=== PATIENT | male | born 1985 | race Caucasian/White ===

== ENCOUNTER 2018-06-20 02:51 | Emergency (ER) | payer BC, SELFPAY ==
--- NOTE | 2018-06-20 02:54 | W.ED.GENAD ---
Discharge Plan Disposition Patient Disposition: HOME Condition: Stable Discharge Details Chief Complaint: FlankPain Clinical Impression: Calculus of right ureter Primary Care Provider: None,None ED Provider: Jeffry Dorsey Home Meds and New Rx's Prescriptions: New oxycodone 5 mg tablet 5 mg PO Q6H PRN (Reason: pain) Qty: 12 RF: 0 ondansetron 4 mg tablet,disintegrating 4 mg PO TID PRN (Reason: nausea and vomiting) 5 Days Qty: 30 RF: 0 tamsulosin [Flomax] 0.4 mg capsule 0.4 mg PO DAILY Qty: 14 RF: 0 Discharge Instructions Instructions: Oxycodone, Rapid Release (By mouth), Kidney Stones (ED) Additional Instructions: you should be contacted with an appointment for urology you can take 1000mg tylenol and 600mg ibuprofen every 6 hours for pain as needed. If you need additional pain relief take 1 oxycodone, do not drink alcohol or drive if you take this medicine take the ondansetron (zofran) as needed for nausea/vomit every 8 hours take the flomax (tamsulosin) daily for 14 days or until you pass the stone If you have fevers, persistent vomit or severe uncontrolled pain return to the emergency department for reevaluation Medical Decision Making 33 yo male who denies chornic medical problems, prior surgeries, denies smoking, frequent alcohol use or drug use, who comes in with acute onset right sided abodminal/flank pain localizes to the rlq and oblique area. Denies having pain like this in the past. [place] well during the day yesterday, no fevers, no vomit. on exam he appears in discomfort and does have rlq pain with guarding, no rebound. Will obtain lfts, lipase and also CT to eval for appendicitis vs kidney stone pt remains stable, having less pain. My read of CT shows distal right ureter stone with hydro. Awaiting labs and vrad report labs unremarkable, vrad agrees distal right ureter stone. Will have him f/u with urology as an outpatient myriam and return precautions given Differential Diagnosis appendicitis, kidney stone, pancreatitis Imaging Data Radiologic Study: Attestation: I personally reviewed and interpreted this imaging study as follows: Imaging: CT Scan My impression: distal right ureter stone Radiologist's impression: IMPRESSION: 3 mm calculus in the right distal ureter with mild right hydroureteronephrosis. Lab Data Lab results reviewed: Yes I reviewed the patient's lab results. HPI General Mode of arrival: ambulatory. Date/Time Provider Initiated Documentation: 06/20/18 02:53. Limitations to Documentation: no limitations. Information obtained by: patient. History of Present Illness 33 year old M presents to the emergency department with the chief complaint of abdominal/flank pain, described as severe, Quality is described as stabbing, and is localized to the abdomen. Patient reports no radiation. Patient started experiencing this hour(s) (3) and it has been constant. No relieving factors improve symptom(s), No exacerbating factors reported . Patient notes no other symptoms.. Patient did receive the following treatments prior to arrival, none Related Data Home Medications Medication Instructions Recorded Confirmed ondansetron 4 mg PO TID PRN 5 Days #30 tab 06/20/18 oxycodone 5 mg PO Q6H PRN #12 tab 06/20/18 tamsulosin [Flomax] 0.4 mg PO DAILY #14 cap 06/20/18 Previous Rx's Medication Instructions Recorded ondansetron 4 mg PO TID PRN 5 Days #30 tab 06/20/18 oxycodone 5 mg PO Q6H PRN #12 tab 06/20/18 tamsulosin [Flomax] 0.4 mg PO DAILY #14 cap 06/20/18 Allergies Allergy/AdvReac Type Severity Reaction Status Date / Time No Known Allergies Allergy Unverified 06/20/18 03:09 Review of Systems Review of Systems All systems reviewed & are unremarkable except as noted in HPI and below Constitutional Denies chills and Denies fever(s) Cardiovascular Denies chest pain and Denies dyspnea Respiratory Denies cough and Denies dyspnea Gastrointestinal Denies vomiting Genitourinary Denies dysuria PFSH Social History Smoking/Tobacco Use Status: Never Substance use type: does not use Do you feel safe at home: Yes Do you feel safe in your relationship?: Yes Exam Const General: no acute distress Orientation: alert HENMT Head: normal to inspection Ears: external ears normal General nose exam: external nose normal Mouth: moist mucous membranes Eyes General: appearance normal, both eyes and all related structures Neck Neck: normal visual inspection Resp Effort & Inspection: normal respiratory effort and able to speak in complete sentences Cardio Rate: regular rate GI Inspection: no abdominal wall ecchymosis Palpation: soft Skin General skin exam: no rashes or lesions noted Neuro General: alert and oriented x3 Extrem General: normal to inspection Psych Mental Status: mental status grossly normal
--- NOTE | 2018-06-20 03:00 | DI.CT_ITS ---
SYMPTOM/DIAGNOSIS: RIGHT LOWER ABD PAIN ABDOMINAL AND PELVIC CT 06/20/18 CT examination of the abdomen and pelvis was performed with a bolus infusion of 100 cc Omnipaque 350. Images obtained through the lung bases are unremarkable. Liver, spleen, pancreas, gallbladder and bile ducts are unremarkable. Abdominal aorta is of normal diameter and no major vascular abnormalities seen. No abdominal or pelvic adenopathy seen. No significant abdominal wall hernia. Appendix appears normal. No evidence of diverticulitis. Left kidney and adrenal are unremarkable in appearance. Right adrenal appears normal. Right kidney is mildly hydronephrotic and there is hydroureter to the level of the ureterovesical junction where there is an obstruction approximately 3 mm in diameter stone. CONCLUSION: 3 mm right obstructing distal ureteral stone.
[2018-06-20 03:03] VITALS: BP 152/82; PULSE 56; RESP 16; TEMP 37; O2SAT 98
--- NOTE | 2018-06-20 03:05 | ED.GENADUL_ITS ---
Discharge Plan Disposition Patient Disposition: HOME Condition: Stable Discharge Details Chief Complaint: FlankPain Clinical Impression: Calculus of right ureter Primary Care Provider: None,None ED Provider: Jeffry Dorsey Home Meds and New Rx's Prescriptions: New oxycodone 5 mg tablet 5 mg PO Q6H PRN (Reason: pain) Qty: 12 RF: 0 ondansetron 4 mg tablet,disintegrating 4 mg PO TID PRN (Reason: nausea and vomiting) 5 Days Qty: 30 RF: 0 tamsulosin [Flomax] 0.4 mg capsule 0.4 mg PO DAILY Qty: 14 RF: 0 Discharge Instructions Instructions: Oxycodone, Rapid Release (By mouth), Kidney Stones (ED) Additional Instructions: you should be contacted with an appointment for urology you can take 1000mg tylenol and 600mg ibuprofen every 6 hours for pain as needed. If you need additional pain relief take 1 oxycodone, do not drink alcohol or drive if you take this medicine take the ondansetron (zofran) as needed for nausea/vomit every 8 hours take the flomax (tamsulosin) daily for 14 days or until you pass the stone If you have fevers, persistent vomit or severe uncontrolled pain return to the emergency department for reevaluation Medical Decision Making 33 yo male who denies chornic medical problems, prior surgeries, denies smoking, frequent alcohol use or drug use, who comes in with acute onset right sided abodminal/flank pain localizes to the rlq and oblique area. Denies having pain like this in the past. [place] well during the day yesterday, no fevers, no vomit. on exam he appears in discomfort and does have rlq pain with guarding, no rebound. Will obtain lfts, lipase and also CT to eval for appendicitis vs kidney stone pt remains stable, having less pain. My read of CT shows distal right ureter stone with hydro. Awaiting labs and vrad report labs unremarkable, vrad agrees distal right ureter stone. Will have him f/u with urology as an outpatient myriam and return precautions given Differential Diagnosis appendicitis, kidney stone, pancreatitis Imaging Data Radiologic Study: Attestation: I personally reviewed and interpreted this imaging study as follows: Imaging: CT Scan My impression: distal right ureter stone Radiologist's impression: IMPRESSION: 3 mm calculus in the right distal ureter with mild right hydroureteronephrosis. Lab Data Lab results reviewed: Yes I reviewed the patient's lab results. HPI General Mode of arrival: ambulatory . Date/Time Provider Initiated Documentation: 06/20/18 02:53 . Limitations to Documentation: no limitations . Information obtained by: patient . History of Present Illness 33 year old M presents to the emergency department with the chief complaint of abdominal/flank pain, described as severe, Quality is described as stabbing, and is localized to the abdomen. Patient reports no radiation. Patient started experiencing this hour(s) (3) and it has been constant. No relieving factors improve symptom(s), No exacerbating factors reported . Patient notes no other symptoms.. Patient did receive the following treatments prior to arrival, none Related Data Home Medications Medication Instructions Recorded Confirmed ondansetron 4 mg PO TID PRN 5 Days #30 tab 06/20/18 oxycodone 5 mg PO Q6H PRN #12 tab 06/20/18 tamsulosin [Flomax] 0.4 mg PO DAILY #14 cap 06/20/18 Previous Rx's Medication Instructions Recorded ondansetron 4 mg PO TID PRN 5 Days #30 tab 06/20/18 oxycodone 5 mg PO Q6H PRN #12 tab 06/20/18 tamsulosin [Flomax] 0.4 mg PO DAILY #14 cap 06/20/18 Allergies Allergy/AdvReac Type Severity Reaction Status Date / Time No Known Allergies Allergy Unverified 06/20/18 03:09 Review of Systems Review of Systems All systems reviewed & are unremarkable except as noted in HPI and below Constitutional Denies chills and Denies fever(s) Cardiovascular Denies chest pain and Denies dyspnea Respiratory Denies cough and Denies dyspnea Gastrointestinal Denies vomiting Genitourinary Denies dysuria PFSH Social History Smoking/Tobacco Use Status: Never Substance use type: does not use Do you feel safe at home: Yes Do you feel safe in your relationship?: Yes Exam Const General: no acute distress Orientation: alert HENMT Head: normal to inspection Ears: external ears normal General nose exam: external nose normal Mouth: moist mucous membranes Eyes General: appearance normal, both eyes and all related structures Neck Neck: normal visual inspection Resp Effort & Inspection: normal respiratory effort and able to speak in complete sentences Cardio Rate: regular rate GI Inspection: no abdominal wall ecchymosis Palpation: soft Skin General skin exam: no rashes or lesions noted Neuro General: alert and oriented x3 Extrem General: normal to inspection Psych Mental Status: mental status grossly normal
[2018-06-20 03:07] LABS: Bilirubin Negative (Negative); Blood Trace-lysed (Negative); Clarity Clear; Glucose Negative (Negative); Ketones 40 mg/dL (Negative); Leukocyte Esterase Negative (Negative); Nitrite Negative (Negative); Specific Gravity >= 1.030 (1.005-1.025); Urobilinogen 0.2 EU/dL (Up TO 0.2)
[2018-06-20] MEDS: Normal Saline 1,000 ML 1000 ML IV (03:16)
[2018-06-20] MEDS: Ondansetron 4 MG/2 ML VIAL IVP (03:16)
[2018-06-20] MEDS: Ketorolac 15 MG/ML VIAL IVP ×2 (03:16→03:40)
[2018-06-20 03:29] LABS: Abs Immature Grans 0.02 k/cumm (0.0-0.09); Absolute Basophil Count 0.03 k/cumm (0.0-0.2); Absolute Eosinophil Count 0.16 k/cumm (0.0-0.7); Absolute Lymphocyte Count 1.53 k/cumm (1.2-3.4); Absolute Neutrophil Count 7.69 k/cumm (1.2-6.7); Basophils % 0.3; Eosinophils % 1.6; HCT 45.8 % (40.0-50.0); HGB 15.4 g/dL (13.5-17.5); Immature Grans % 0.2; Lymphocytes % 15.4; Mean Corp. HGB Concentration 33.6 g/dL (32.0-36.0); Mean Corpuscular Hemoglobin 26.6 pg (27.0-33.0); Mean Corpuscular Volume 79.2 fL (80-95); Mean Platelet Volume 10.7 fL (8.0-11.0); Neutrophils % 77.5; Platelet Count 224 x1000/uL (130-400); RBC 5.78 m/cumm (4.50-6.00); RBC Distribution Width 13.6 % (11.8-14.1); White Blood Cell Count 9.93 k/cumm (4.4-10.8)
[2018-06-20] MEDS: Omnipaque 350 MG/ML 100 ML BTL IJ (03:29)
[2018-06-20 03:39] LABS: Epithelial Cells Negative HPF (Negative); WBC Negative HPF (0-5)
[2018-06-20 03:40] LABS: Bacteria Negative HPF (Negative); Casts 0-2 Hyaline LPF (Negative); Crystals Negative HPF (Negative); Mucus Heavy (Negative)
[2018-06-20 03:41] LABS: ALT 22 U/L (12-78); AST 20 U/L (15-37); Albumin 4.4 g/dL (3.4-5.0); Alkaline Phosphatase 44 U/L (46-116); Anion Gap 11.7 mmol/L (3-11); BUN 23 mg/dL (7-18); Bilirubin, Total 1.4 mg/dL (0.2-1.0); CO2 28.3 mmol/L (21.0-32.0); CREATININE 1.38 mg/dL (0.70-1.30); Chloride 101 mmol/L (98-107); Estimated GFR 59.71 (mL/min/1.73m2); Glucose 127 mg/dL (70-100); Lipase 120 U/L (73-393); Magnesium 1.9 mg/dL (1.8-2.4); Potassium 3.7 mmol/L (3.5-5.1); Sodium 141 mmol/L (136-145); Total Protein 7.9 g/dL (6.4-8.2)
[2018-06-20 03:41] LABS: C & S Indicated? No
[2018-06-20 03:48] VITALS: BP 140/72; PULSE 56; RESP 16; TEMP 37; O2SAT 98
[2018-06-20] MEDS: oxyCODONE 5 MG TAB 10 MG PO (03:48)
--- NOTE | 2018-06-20 03:50 | DI.VRAD_ITS ---
EXAM: CT Abdomen and Pelvis With Contrast EXAM DATE/TIME: 06/20/2018 3:01 AM CLINICAL HISTORY: 33 years old, male; Pain; Abdominal pain; Localized; Right lower quadrant (rlq); Patient HX: Right lower abdominal pain; Additional info: Per PT: Ongoing since midnight TECHNIQUE: Imaging protocol: Axial computed tomography images of the abdomen and pelvis with intravenous contrast. Coronal and sagittal reformatted images were created and reviewed. COMPARISON: No relevant prior studies available. FINDINGS: Lower thorax: No acute findings. ABDOMEN: Liver: Normal. No mass. Gallbladder and bile ducts: Normal. No calcified stones. No ductal dilation. Pancreas: Normal. No ductal dilation. Spleen: Normal. No splenomegaly. Adrenals: Normal. No mass. Kidneys and ureters: 3 mm calculus in the right distal ureter with mild right hydroureteronephrosis. Stomach and bowel: Normal. No obstruction. No mucosal thickening. Appendix: No evidence of appendicitis. PELVIS: Bladder: Unremarkable as visualized. Reproductive: Unremarkable as visualized. ABDOMEN and PELVIS: Intraperitoneal space: Normal. No free air. No significant fluid collection. Bones/joints: No acute fracture. No dislocation. Soft tissues: Unremarkable. Vasculature: Normal. No abdominal aortic aneurysm. Lymph nodes: Normal. No enlarged lymph nodes. IMPRESSION: 3 mm calculus in the right distal ureter with mild right hydroureteronephrosis. Dictated and Authenticated by: Jeffry Chapin MD. Ordering:ROQUE Teran MD
[2018-06-20] MEDS: Ondansetron O.D.T. 4 MG TABEF PO (03:51)
--- NOTE | 2018-06-21 10:00 | NUR.NOTE ---
Nursing Note: Faxed referral [facility], Dr. Mayes for follow up. [place].
== END 2018-06-20 04:04 | disposition home or self-care (01) ==
PROVIDERS: Emergency Provider Emergency Medicine
DX: N13.30 Unspecified hydronephrosis (principal)
CPT/HCPCS: 36415; 80053; 83690; 96361; 96374; 96375; 96376; 74177; 81003; 81015; 83735; 85025; 99284; J1885; J2405; J3490

== ENCOUNTER 2021-10-03 12:13 | Outpatient (REF) | payer BC, SELFPAY ==
[2021-10-04 13:45] LABS: COVID-19 RT-PCR UVMMC Result Negative (Negative)
== END 2021-10-03 12:14 | disposition home or self-care (01) ==
LOC: LBN 12:13
PROVIDERS: Student in an Organized Health Care Education/Training Program; PCP Nurse Practitioner; Visit Provider Nurse Practitioner
DX: J02.9 Acute pharyngitis, unspecified (principal); J35.1 Hypertrophy of tonsils; Z20.822 Contact with and (suspected) exposure to COVID-19
CPT/HCPCS: 87449; U0003; 87081

== ENCOUNTER 2024-06-16 02:28 | Outpatient (CLI) | payer BC, SELFPAY ==
[2024-06-16 07:39] LABS: Abs Immature Grans 0.01 10^3/uL (0.0-0.06); Absolute Basophil Count 0.03 10^3/uL (0.0-0.2); Absolute Eosinophil Count 0.17 10^3/uL (0.0-0.7); Absolute Lymphocyte Count 1.58 10^3/uL (1.2-3.4); Absolute Monocyte Count 0.27 10^3/uL (0.1-0.8); Absolute Neutrophil Count 2.11 10^3/uL (1.2-6.7); Basophils % 0.7 %; Eosinophils % 4.1 %; HCT 46.3 % (40.0-50.0); HGB 15.2 g/dL (13.5-17.5); Immature Grans % 0.2 %; Lymphocytes % 37.9 %; MCHC 32.8 % (32.0-36.0); MCV 82 fL (80-95); MPV 10.1 fL (8.0-11.0); Monocytes % 6.5 %; Neutrophils % 50.6 %; Platelet Count 192 10^3/uL (130-400); RBC 5.64 10^6/uL (4.36-5.78); RDW 13.1 % (11.8-14.1); WBC 4.17 10^3/uL (4.4-10.8)
[2024-06-16 08:43] LABS: ALT 32 U/L (16-63); AST 20 U/L (15-37); Albumin 4.1 g/dL (3.4-5.0); Alkaline Phosphatase 40 U/L (46-116); Anion Gap 6.2 mmol/L (3-11); BUN 18 mg/dL (7-18); CO2 29.8 mmol/L (21.0-32.0); CREATININE 1.2 mg/dL (0.70-1.30); Calcium 8.8 mg/dL (8.5-10.1); Calculated LDL 120 mg/dL (<100); Chloride 108 mmol/L (98-107); Cholesterol 197 mg/dL (<200); Estimated GFR 79.38 (mL/min/1.73m2); Glucose 92 mg/dL (74-106); HDL Cholesterol 59 mg/dL (>or=40); Potassium 4.4 mmol/L (3.5-5.1); Sodium 144 mmol/L (136-145); Total Protein 7.3 g/dL (6.4-8.2); Triglyceride 94 mg/dL (<150); Vitamin B12 299 pg/mL (193-986); Vitamin D 25 Total 14 ng/mL (30-100)
[2024-06-16 09:14] LABS: FREE T4 0.97 ng/dL (0.76-1.46)
[2024-06-17 10:57] LABS: Lyme Ab w Rflx to Lyme Confirm Positive (Negative)
[2024-06-19 00:19] LABS: Anaplasma phagocytophilum Negative (Negative); B. miyamotoi PCR Negative (Negative); Babesia divergens/MO-1 Negative (Negative); Babesia duncani Negative (Negative); Babesia microti Negative (Negative); Ehrlichia chaffeensis Negative (Negative); Ehrlichia ewingii/canis Negative (Negative); Ehrlichia muris eauclairensis Negative (Negative)
[2024-06-20 08:59] LABS: Lyme IgG Ab Positive (Negative); Lyme IgM Ab Negative (Negative)
== END 2024-06-16 02:29 | disposition home or self-care (01) ==
LOC: LBO 02:28
PROVIDERS: PCP Nurse Practitioner; Referring Provider Nurse Practitioner; Visit Provider Nurse Practitioner
DX: R53.83 Other fatigue (principal); E55.9 Vitamin D deficiency, unspecified
CPT/HCPCS: 36415; 80053; 80061; 82306; 86617; 87798; 82607; 84439; 84443; 85025; 86618

== ENCOUNTER 2025-02-27 01:47 | Outpatient (CLI) | payer BC, SELFPAY ==
[2025-02-27 17:10] LABS: Creatine Kinase 93 U/L (46-171)
[2025-02-27 17:54] LABS: Vitamin D 25 Total 39 ng/mL (30-100)
[2025-02-27 17:55] LABS: TSH (W/Ref FT4) 2.75 uIU/mL (0.55-4.78); Vitamin B12 386 pg/mL (211-911)
== END 2025-02-27 01:48 | disposition home or self-care (01) ==
LOC: LBO 01:47
PROVIDERS: PCP Nurse Practitioner; Referring Provider Nurse Practitioner Family; Visit Provider Nurse Practitioner Family
DX: R53.83 Other fatigue (principal)
CPT/HCPCS: 36415; 82306; 82550; 82607; 84443